=== PATIENT | male | born 1995 | race Caucasian/White ===

== ENCOUNTER 2016-08-21 18:08 | Emergency (ER) | payer OTHER ==
[2016-08-21 19:04] VITALS: BP 118/105
--- NOTE | 2016-08-21 19:36 | UC ---
Throat Pain/Nasal Bill HPI - HPI Summary HPI Summary: 20 male presents complaining of sore throat that began Thursday08/18/16. Patient states he had a headache Thursday night and upon waking up Thursday morning developed a sore throat. It has not gone away since and is sore upon swallowing. It is worse in the morning. He has tried taking Dayquil and using throat lozenges. The lozenges give him relief but the Dayquil hasn't seemed to help him much. Denies cough, ear pain, nasal congestion, sinus pressure and abdominal symptoms. States he did have a few episodes of night sweats but has not had a fever. Denies excessive fatigue and body aches. - History of Current Complaint Chief Complaint: UCGeneralIllness Stated Complaint: SORE THROAT Time Seen by Provider: 08/21/16 18:50 Hx Obtained From: Patient Onset/Duration: Sudden Onset, Lasting Days Severity: Mild Pain Intensity: 4 Pain Scale Used: 0-10 Numeric Cough: None Associated Signs & Symptoms: Positive: Dysphagia - Allergies/Home Medications Allergies/Adverse Reactions: Allergies Allergy/AdvReac Type Severity Reaction Status Date / Time No Known Allergies Allergy Verified 08/21/16 19:04 Home Medications: Home Medications NK [No Home Medications Reported] 08/21/16 [History Confirmed 08/21/16] PMH/Surg Hx/FS Hx/Imm Hx Cardiovascular History Of: Denies: Hypertension Psychological History Of: Denies: Anxiety - Surgical History Surgical History: Yes Surgery Procedure, Year, and Place: left shoulder-labrum repair-05/2016 - Family History Known Family History: Positive: None - Social History Alcohol Use: Occasionally Substance Use Type: None Smoking Status (MU): Never Smoked Tobacco Review of Systems Constitutional: Negative Skin: Negative Eyes: Negative ENT: Sore Throat Respiratory: Negative Cardiovascular: Negative Gastrointestinal: Negative Neurological: Headache Psychological: Negative All Other Systems Reviewed And Are Negative: Yes Physical Exam Triage Information Reviewed: Yes Appearance: Well-Appearing, No Pain Distress, Well-Nourished Vital Signs: Initial Vital Signs Temp 98.8 F 08/21/16 18:58 Pulse 89 08/21/16 18:58 Resp 16 08/21/16 18:58 BP 118/105 08/21/16 18:58 Pulse Ox 100 08/21/16 18:58 Vital Signs Reviewed: Yes Eyes: Positive: Conjunctiva Clear ENT: Positive: Hearing grossly normal, Pharyngeal erythema, TMs normal, Other: - no sign of peritonsillar abscess or dental related infection. Negative: Nasal congestion, TM bulging, Tonsillar swelling, Tonsillar exudate Dental: Negative: Percussion Tenderness @, Cervical Lymphadenopathy Neck: Positive: Supple, Nontender, No Lymphadenopathy Respiratory: Positive: Chest non-tender, Lungs clear, Normal breath sounds, No respiratory distress, No accessory muscle use Cardiovascular: Positive: RRR, No Murmur, Pulses Normal, Brisk Capillary Refill Abdominal Exam: Normal Musculoskeletal: Positive: Strength Intact, ROM Intact Neurological Exam: Normal Psychological Exam: Normal Skin Exam: Normal Throat Pain/Nasal Course/Dx - Course Course Of Treatment: strep culture obtained and negative. due to PE findings, centor criteria and strep result being negative patient will be educated on symptomatic measures as an antibiotic did not seem appropriate at this time. aware of worsening/not improving symptoms to return for trial of antibiotic. - Differential Dx/Diagnosis Differential Diagnosis/HQI/PQRI: Mononucleosis, Otitis Media, Pharyngitis, Sinusitis, Tonsillitis Provider Diagnoses: Pharyngitis Discharge - Discharge Plan Condition: Stable Disposition: HOME Patient Education Materials: Pharyngitis (ED) Additional Instructions: Try using over the counter Zicam and Chloraseptic [place] to help numb your throat. The lozenges you have also help every 2 hours. You may also want to try swishing with salt water 4 times daily. Drinking hot tea with honey will also help relieve symptoms and fight infection. Wash hands frequently and drink plenty of fluids. If symptoms worsen or do not improve in the next 3-5 days please return for further evaluation.
== END 2016-08-21 19:42 | disposition home or self-care (01) ==
LOC: UCCORT 18:08
DX: J02.9 Acute pharyngitis, unspecified (principal)
CPT/HCPCS: 87651; 99201; G0463